=== PATIENT | female | born 1985 | race African-American/Black ===

== ENCOUNTER → 2017-04-06 | Outpatient (CLI) | payer OTHER | END | disposition home or self-care (01) | LOC: PPHC LAB 10:55 | DX: Z02.0 Encounter for examination for admission to educational institution (principal) ==

== ENCOUNTER 2018-09-19 12:39 | Emergency (ER) | payer OTHER ==
[~2018-09-19] VITALS: Ht 154.9 cm; Wt 78.0 kg
[2018-09-19] MEDS ORDERED: SYNTHROID50 MCG PO (13:02)
== END 2018-09-19 16:05 | disposition home or self-care (01) ==
LOC: ER 12:39
DX: B34.9 Viral infection, unspecified (principal)

== ENCOUNTER 2019-03-14 11:46 | Emergency (ER) | payer OTHER ==
[~2019-03-14] VITALS: Ht 157.5 cm; Wt 81.6 kg
[~2019-03-14 11:46] MED LIST: SYNTHROID50 MCG PO
== END 2019-03-14 12:33 | disposition home or self-care (01) ==
LOC: ER 11:46
DX: M54.5 Low back pain (principal)

== ENCOUNTER 2020-11-25 08:00 | Outpatient (CLI) | payer OTHER | END 2020-11-25 08:30 | disposition home or self-care (01) | LOC: PPH VACUNA 08:00 | PROVIDERS: ATTEND Emergency Medicine Pediatric Emergency Medicine | DX: Z23 Encounter for immunization (principal) ==

== ENCOUNTER 2020-12-16 11:48 | Emergency (ER) | payer OTHER ==
[~2020-12-16] VITALS: Ht 154.9 cm; Wt 99.8 kg
[2020-12-16] MEDS ORDERED: NABUMETONE750 MG PO (14:46)
[2020-12-16] MEDS ORDERED: ZANAFLEX4 M1 PO (14:46)
== END 2020-12-16 14:56 | disposition home or self-care (01) ==
LOC: ER 11:48
DX: M54.2 Cervicalgia (principal)

== ENCOUNTER 2021-01-16 13:12 | Emergency (ER) | payer OTHER ==
[~2021-01-16] VITALS: Ht 154.9 cm; Wt 85.3 kg
[~2021-01-16 13:12] MED LIST changes: +NABUMETONE750 MG PO; +ZANAFLEX4 M1 PO
== END 2021-01-16 14:34 | disposition home or self-care (01) ==
LOC: ER 13:12
DX: M54.50 Low back pain, unspecified (principal); E03.9 Hypothyroidism, unspecified

== ENCOUNTER → 2021-02-27 | Outpatient (CLI) | payer OTHER | END | disposition home or self-care (01) | LOC: PPH VACUNA | DX: Z23 Encounter for immunization (principal) ==

== ENCOUNTER 2021-10-21 09:35 | Outpatient (CLI) | payer OTHER | END 2021-10-21 09:40 | disposition home or self-care (01) | LOC: PPH VACUNA 09:35 | PROVIDERS: ATTEND Emergency Medicine Pediatric Emergency Medicine | DX: Z23 Encounter for immunization (principal) ==

== ENCOUNTER 2022-03-12 09:19 | Emergency (ER) | payer OTHER ==
[~2022-03-12] VITALS: Ht 154.9 cm; Wt 95.3 kg
== END 2022-03-12 12:09 | disposition home or self-care (01) ==
LOC: ER 09:19
DX: U07.1 COVID-19 (principal); J22 Unspecified acute lower respiratory infection